=== PATIENT | male | born 1965 | race Caucasian/White ===

== ENCOUNTER 2023-11-06 06:56 | Outpatient (CLI) | payer SELFPAY ==
--- NOTE | 2023-11-06 07:09 | MR_ITS ---
WS: [id number] MRI BRAIN WITH AND WITHOUT CONTRAST HISTORY: UNSPECIFIED CONVULSIONS COMPARISON: Noncontrast CT head 01/15/2019 TECHNIQUE: Multiplanar imaging performed through the brain with MultiHance 16 ml's IV. No acute infarcts are seen. Gonzales-white matter differentiation is well preserved. Mild bilateral symme tric atrophy and mild small vessel ischemic disease. There are a few scattered T2 and FLAIR signal hy perintensities in the supratentorial brain. No infarct. No susceptibility artifacts or prior lacunar infarcts. Ventricles and extra-axial spaces are normal. Empty sella turcica. Visualized posterior fossa and brainstem are also normal. No enhancing masses. RIGHT frontal lobe venous angioma. Dural venous sinuses are normal. Paranasal sinuses: Well aerated with no significant disease. Mastoid air cells: Normal. Calvarium and scalp: Normal. Seen best on the coronal images is a soft tissue mass protruding into the larynx. Mass is best seen o n the coronal T1 sequences with contrast. This nodule measures 11 x 9 mm and should be further evalua charles. Recommend neck CT with IV contrast. Laryngeal neoplasm needs to be excluded. MR/MR head wo/w con [id number] IMPRESSION: 1. Normal diffusion imaging. No acute infarct. No intracranial hemorrhage. 2. Very mild volume loss and small vessel disease. 3. RIGHT frontal venous angioma. 4. Soft tissue mass measuring 11 x 9 mm along the RIGHT lateral larynx extendi ng medially. Very limited visualization of best seen on the coronal T1 postcont rast sequence. Neck CT with IV contrast should be obtained. Direct visualizatio n may also be necessary.
[2023-11-06] MEDS: gadobenate dimeglumine 20 mL vial IV (07:53)
== END 2023-11-06 06:57 | disposition home or self-care (01) ==
PROVIDERS: PCP Family Medicine
DX: D38.0 Neoplasm of uncertain behavior of larynx (principal); D18.02 Hemangioma of intracranial structures; R56.9 Unspecified convulsions
CPT/HCPCS: 70553

== ENCOUNTER 2023-12-01 06:01 | Outpatient (CLI) | payer SELFPAY ==
--- NOTE | 2023-12-01 06:12 | CT_ITS ---
WS: [id number] CT NECK WITH CONTRAST HISTORY: NECK MASS TECHNIQUE: Contiguous 2 mm axial images are performed through the neck with intravenous contrast. Sag ittal and coronal reformats are also submitted. All CT scans at [facility] use at least one o f these dose optimization techniques: automated exposure control; mA and/or kV adjustment per patient size (includes targeted exams where dose is matched to clinical indication); or iterative reconstruc tion. CONTRAST: CONTRAST: Omnipaque 350; 100 mL IV. DLP: 135.58 mGy.cm COMPARISON: MRI head 11/06/2023 Reidentified is a soft tissue mass in the RIGHT posterior suprahyoid parapharyngeal soft tissue measu ring 9 x 12 mm. There is a small central calcification. No significant enhancement. This mass is just below the [place] tonsil. And extends into the oropharynx. There is also asymmetry of the epiglotti s demonstrating thickening on the RIGHT with decrease size of the vallecula. Bilateral cervical chain lymph nodes. Largest lymph nodes are at level 2A measuring 9 mm. No necrotic lymph nodes. Thyroid gland and salivary glands are normally enhancing with no masses. No osseous abnormalities. Visualized portions of the skull base demonstrate no abnormalities. Orbits and globes are within norm al limits. No soft tissue masses. Visualized paranasal sinuses and mastoid air cells are normal. Benign calcified granuloma LEFT lung apex. CT/CT neck w con* [id number] IMPRESSION: 1. Well-circumscribed soft tissue mass with central calcification in the RIGHT parapharyngeal space. This corresponds to the mass seen on the recent MRI. Dir ect visualization with biopsy and possible removal should be considered as amanda gnancy needs to be excluded. 2. There is also asymmetry and thickening of the RIGHT epiglottis with decreas e in size of the RIGHT vallecula. This should also be evaluated at the same jv e as the parapharyngeal mass. 3. Small bilateral level 2A lymph nodes measure 9 mm. No necrotic lymph nodes.
[2023-12-01] MEDS: iohexol 350 mg/mL 500 mL Btl (per mL) IV (06:49)
[2023-12-01 07:13] LABS: Blood Urea Nitrogen 13 mg/dL (8-23); Glomerular Filtration Rate 68.3 mL/min (90-130)
== END 2023-12-01 06:02 | disposition home or self-care (01) ==
LOC: RAD 06:02
PROVIDERS: Radiology Diagnostic Radiology; PCP Family Medicine; Visit Provider Family Medicine
DX: R22.1 Localized swelling, mass and lump, neck (principal); J05.10 Acute epiglottitis without obstruction
CPT/HCPCS: 70491; 82565; 84520